=== PATIENT | male | born 1950 | race Caucasian/White ===

== ENCOUNTER → 2016-10-14 | Outpatient (CLI) | payer MEDICARE | LOC: GMAM 18:18 | PROVIDERS: ATTEND Family Medicine | DX: R53.83 Other fatigue (principal); E29.1 Testicular hypofunction; M10.9 Gout, unspecified; Z12.5 Encounter for screening for malignant neoplasm of prostate | CPT/HCPCS: 84403; 84439; 84443; 84550; G0103 ==

== ENCOUNTER → 2017-04-29 | Outpatient (CLI) | payer MEDICARE | END | disposition home or self-care (01) | LOC: GMAM 11:07 | PROVIDERS: ATTEND Family Medicine | DX: E53.8 Deficiency of other specified B group vitamins (principal); E29.1 Testicular hypofunction; M10.9 Gout, unspecified ==

== ENCOUNTER → 2017-12-02 | Outpatient (CLI) | payer MEDICARE | LOC: GMAM 11:47 | PROVIDERS: ATTEND Family Medicine | DX: M10.9 Gout, unspecified (principal); E53.8 Deficiency of other specified B group vitamins; Z12.5 Encounter for screening for malignant neoplasm of prostate | CPT/HCPCS: 82607; 84550; G0103 ==

== ENCOUNTER → 2017-12-15 | Outpatient (CLI) | payer MEDICARE | LOC: GMAM 14:00 | PROVIDERS: ATTEND Family Medicine | DX: E29.1 Testicular hypofunction (principal) ==

== ENCOUNTER → 2018-01-15 | Outpatient (CLI) | payer MEDICARE ==
--- NOTE | 2018-01-16 14:59 | US ---
Exam: Bilateral lower extremity arterial Doppler sonogram CLINICAL HISTORY: Peripheral vascular disease of the lower extremities TECHNIQUE: Doppler sonographic evaluation of the bilateral lower extremities was performed. FINDINGS: Right Submitted sonographic images reveal arteriosclerotic plaque in the right common femoral and superficial femoral arteries. Positive flow in the popliteal artery and vessels below the knee. There is monophasic flow in the posterior tibial and dorsalis pedis arteries consistent with extensive significant arteriosclerotic changes proximally. The following peak systolic flow flow velocity measurements were obtained: Common femoral artery velocity equals 80 centimeters per second , triphasic. Superficial femoral artery velocity equals 63-77 centimeters per second , biphasic. Popliteal artery velocity equals 48 centimeters per second , triphasic. Peroneal artery velocity equals 34.5 centimeters per second , biphasic. Posterior tibial artery velocity equals 42 centimeters per second , monophasic. Dorsalis pedis artery velocity equals 5.3 centimeters per second , monophasic. Left Submitted sonographic images reveal calcified plaque in left common femoral artery and superficial femoral artery. Positive flow in the calcified popliteal artery with no high-grade stenosis visualized. Monophasic flow in the left posterior tibial and dorsalis pedis arteries suggests significant arteriosclerotic changes proximally. The following peak systolic flow flow velocity measurements were obtained: Common femoral artery velocity equals 118 centimeters per second , triphasic. Superficial femoral artery velocity equals 50-79 centimeters per second , biphasic. Popliteal artery velocity equals 47 centimeters per second , triphasic. Peroneal artery velocity equals 45.5 centimeters per second , biphasic. Posterior tibial artery velocity equals 27 centimeters per second , monophasic. Dorsalis pedis artery velocity equals 13 centimeters per second , monophasic. IMPRESSION: Monophasic flow in the posterior tibial and dorsalis pedis arteries bilaterally consistent with significant peripheral arteriosclerotic vascular disease. Electronically signed by: Bala Farrar MD 01/16/2018 2:58 PM CDT
== END ==
LOC: US 09:00
PROVIDERS: ATTEND Family Medicine
DX: I73.9 Peripheral vascular disease, unspecified (principal)

== ENCOUNTER → 2018-03-05 | Outpatient (CLI) | payer MEDICARE ==
--- NOTE | 2018-03-05 17:45 | CT ---
EXAM DESCRIPTION: CTA Runoff CLINICAL HISTORY: 67 years, Male, I35.0,I49.9, I70.0,I73.9 COMPARISON: None TECHNIQUE: Rapid bolus administration of 150 mL of Optiray 320 IV contrast was performed with thin-section axial scanning of the abdomen, pelvis and lower extremities performed in a dynamic fashion for CT angiography. Reconstructed multiplanar and three dimensional MIP images created on a separate dedicated workstation are reviewed along with the source axial images and stored in the patient's medical record. FINDINGS: CT angiography abdomen Normal enhancement of the aorta is seen with calcification at the origins of celiac and superior mesenteric arteries. Axial images would suggest 50% stenoses of both of these vessels. Dense calcification of the renal artery origins is present with mild narrowing on the left and 50-70% narrowing of the right renal artery origin. No aortic aneurysm. Calcified common iliac arteries are noted without aneurysm. Positive enhancement of the inferior mesenteric artery as well as the peripheral branches of the superior mesenteric artery. There is positive enhancement of hepatic and splenic arteries. Nonangiographic findings include small lesions in the liver probably cysts. Normal size of the spleen. Normal renal cortical enhancement bilaterally with no delay in the nephrogram. CT angiography pelvis No significant stenosis of the common iliac arteries. Right common femoral artery is widely patent with normally enhanced bifurcation. The left common femoral artery is irregularly narrowed approximately 40% by calcified plaque. Positive enhancement of the left femoral bifurcation. Nonangiographic findings in the pelvis include diverticulosis of the sigmoid colon. Appendix appears normal. No pelvic mass. Prostate is mildly prominent with normal appearance the bladder. CT angiography lower extremities Right Mild atherosclerotic plaque at the right femoral bifurcation without significant stenosis of the common femoral or superficial femoral or profunda femoral arteries. Superficial femoral artery is involved with atherosclerotic plaque and multilevel foci of 20-40% luminal diameter narrowing. No high-grade stenosis is evident. There is positive enhancement of the popliteal artery with 40% luminal diameter narrowing distally. Calcified origin of the anterior tibial artery is noted with high-grade 70-80% stenosis proximally. Calcification of the tibioperoneal trunk, posterior tibial and peroneal arteries is seen with high-grade narrowing. Three-vessel flow is seen to the ankle. Positive flow is seen in the posterior plantar arch and dorsalis pedis arteries. Left Calcified plaque causes 40% stenosis of the left common femoral artery just above the bifurcation. Calcified plaque causes 30% origin narrowing of the left superficial femoral artery with no significant narrowing of the profunda femoral artery. Evaluating the superficial femoral artery, calcified plaque is relatively mild throughout its length without high-grade stenosis. Positive enhancement of the left popliteal artery without proximal stenosis. Just above the bifurcation, there is 60% stenosis of the distal popliteal artery. High-grade stenosis of the proximal anterior tibial artery is seen with densely calcified tibioperoneal trunk, posterior tibial and peroneal arteries. No contrast is seen in the lumen of the anterior tibial artery beyond the first few centimeters. There is positive contrast opacification of the small lumen of calcified peritoneal and posterior tibial arteries with two-vessel runoff to the ankle. Collateral vessels reconstitute the dorsalis pedis which is small in size. Collateral vessels reconstitute the posterior plantar arch with minimal positive contrast enhanced vessels in this area. Findings suggest single vessel runoff to the left foot. Three-D shaded surface display images show normal anatomy of the aorta with no aneurysm. Calcified plaque is prominent at the distal external iliac and common femoral arteries. Coronal and sagittal reformatted images show calcified plaque causing 40% narrowing of the left common femoral artery and lesser narrowing on the right. Extensive calcified plaque is seen throughout the vessels. Shaded surface display images are helpful. IMPRESSION: Arteriosclerotic plaque narrows the left common femoral artery approximately 40%. Relatively mild arteriosclerotic disease in the superficial femoral arteries bilaterally. Severe arteriosclerotic narrowing of the vessels below the knees bilaterally with three-vessel runoff to the right ankle and two-vessel runoff to the right foot. Two-vessel runoff to the left ankle with single vessel runoff to the left foot. This exam was performed according to our departmental dose-optimization program, which includes automated exposure control, adjustment of the mA and/or kV according to patient size and/or use of iterative reconstruction technique. Total DLP: 1759.77 mGycm. Electronically signed by: Bala Farrar MD 03/05/2018 5:44 PM CDT
== END ==
LOC: CT 09:00
PROVIDERS: ATTEND Family Medicine
DX: I35.0 Nonrheumatic aortic (valve) stenosis (principal); I49.9 Cardiac arrhythmia, unspecified; I70.0 Atherosclerosis of aorta; I73.9 Peripheral vascular disease, unspecified

== ENCOUNTER → 2018-07-07 | Outpatient (CLI) | payer MEDICARE | LOC: GMAM 11:50 | PROVIDERS: ATTEND Family Medicine | DX: E53.8 Deficiency of other specified B group vitamins (principal); M10.9 Gout, unspecified ==

== ENCOUNTER → 2018-10-02 | Outpatient (CLI) | payer MEDICARE | LOC: GMAM 10:38 | PROVIDERS: ATTEND Family Medicine | DX: M10.9 Gout, unspecified (principal) ==

== ENCOUNTER → 2019-01-07 | Outpatient (CLI) | payer MEDICARE ==
--- NOTE | 2019-01-08 07:02 | RAD ---
EXAM DESCRIPTION: Shoulder,Left 2 or More Views CLINICAL HISTORY: 68 years Male, M25.511, M25.512 COMPARISON: None. FINDINGS: Four views of the left shoulder show no acute fracture or malalignment. Mild degenerative changes in the left AC joint without undersurface spurring. No apparent lesser fracture or soft tissue abnormality. IMPRESSION: Mild degenerative changes in the left AC joint, otherwise unremarkable exam. Electronically signed by: Nathan Skinner MD 01/08/2019 6:59 AM CDT
--- NOTE | 2019-01-08 07:03 | RAD ---
EXAM DESCRIPTION: Shoulder,Right 2 or More Views CLINICAL HISTORY: 68 years Male, M25.511, M25.512 COMPARISON: None. FINDINGS: Four views of the right shoulder show no acute fracture or malalignment. There are degenerative changes in the right AC joint including mild undersurface spurring. The soft tissues are unremarkable. No right-sided rib fracture. IMPRESSION: Mild degenerative changes in the right AC joint including undersurface spurring, otherwise unremarkable exam. Electronically signed by: Nathan Skinner MD 01/08/2019 7:00 AM CDT
== END ==
LOC: RAD 07:48
PROVIDERS: ATTEND Orthopaedic Surgery
DX: M19.011 Primary osteoarthritis, right shoulder (principal); M19.012 Primary osteoarthritis, left shoulder

== ENCOUNTER → 2019-10-20 | Outpatient (CLI) | payer MEDICARE | LOC: GMAM 12:04 | PROVIDERS: ATTEND Family Medicine | DX: E53.8 Deficiency of other specified B group vitamins (principal); E29.1 Testicular hypofunction; M10.9 Gout, unspecified; I10 Essential (primary) hypertension ==

== ENCOUNTER 2020-08-27 11:39 | Emergency (ER) | payer MEDICARE ==
--- NOTE | 2020-08-27 12:00 | ED.PDOC ---
History of Present Illness - General Chief Complaint: Lower Extremity Injury Time Seen by Provider: 08/27/20 11:41 Source: patient, RN notes reviewed, Vital Signs reviewed, old records Exam Limitations: no limitations - History of Present Illness Initial Comments: 70 yo male was stepping onto [email or web address] yesterday when he grabbed the door handle and slipped off landing on his right foot but ended up twisting his left ankle. This occurred one day ago. Has pain and swelling so came in for evaluation. denies any other injuries, did not hit head. patient taking alleve and took SO tramadol for pain. tramadol did seem to help. Allergies/Adverse Reactions: Allergies NO KNOWN ALLERGY Allergy (Verified 08/27/20 12:30) Home Medications: Ambulatory Orders Allopurinol [Zyloprim] 600 mg PO DAILY 12/06/15 Aspirin [Caitie Low Dose] 81 mg PO BEDTIME 12/06/15 Lisinopril 10 mg PO DAILY 12/06/15 Meloxicam [Mobic] 15 mg PO DAILY 12/06/15 amLODIPine BESYLATE [Norvasc] 10 mg PO BEDTIME 12/06/15 Testosterone Cypionate [Depo-Testosterone] 200 mg IM . EVERY OTHER WEEK 04/29/16 Review of Systems - Review of Systems Constitutional: Denies: chills, fever EENTM: Denies: blurred vision Respiratory: Denies: cough, short of breath Cardiology: Denies: chest pain Gastrointestinal/Abdominal: Denies: abdominal pain Genitourinary: Denies: dysuria, hematuria Musculoskeletal: States: joint pain, joint swelling, muscle pain. Denies: back pain Skin: States: see HPI. Denies: rash Neurological: Denies: headache, numbness, paresthesia Endocrine: Denies: unexplained weight loss Hematologic/Lymphatic: Denies: easy bleeding, easy bruising Past Medical History (General) - Patient Medical History Hx Stroke: No Hx Dementia: No Hx Asthma: No Hx Cardiac Disorders: No Hx Congestive Heart Failure: No Hx Pacemaker: No Hx Hypertension: Yes Hx Diabetes: No Hx MRSA: No - Vaccination History Hx Tetanus, Diphtheria Vaccination: No Hx Influenza Vaccination: No Hx Pneumococcal Vaccination: No - Social History Hx Tobacco Use: No Family Medical History - Family History Mother Family History: Unknown Physical Exam - Physical Exam General Appearance: Alert, Comfortable, No apparent distress, Well Developed, Well Groomed, Well Hydrated, Well Nourished Eyes, Ears, Nose, Throat: normal ENT inspection Neck: non-tender, supple, normal inspection Cardiovascular/Respiratory: regular rate, rhythm, normal peripheral pulses, no respiratory distress Gastrointestinal/Abdominal: non-tender Back: normal inspection, no vertebral tenderness Thigh/Hip: normal inspection, non-tender, no evidence of injury, normal ROM Leg: normal inspection, non-tender, no evidence of injury, normal ROM Knee: normal inspection, non-tender, no evidence of injury, normal ROM Ankle: soft tissue tenderness, swelling - left ankle swelling, mild eccymosis , other - no evidence of joint instability Foot: normal inspection, non-tender, no evidence of injury, normal ROM DTR - Lower Extremities: 2+: Patellar, left, Patellar, right Neuro/Tendon: normal sensation, normal motor functions, normal tendon functions, responds to pain, no evidence tendon injury Mental Status: alert, oriented x 3 Skin: normal color, warm/dry Progress - Progress Progress: 08/27/20 12:36 The data reviewed when caring for this patient included: nurse notes, prior records, etc. The history and assessments from nurses notes were reviewed and considered, and the patient's home medication list was also reviewed and considered. My assessment and the results of testing completed here in the ED were discussed with the patient/family. All questions were answered, and they express understanding of my assessment and the plan. They have been instructed to return if their symptoms worsen, and have been asked to follow up with their primary care physician to recheck today's presenting complaint. Strict return precautions given. I have reviewed medication, benefits, alternatives and side effects. Patient decided to proceed with medication. Idalia Franks DO #[id number] - EKG/XRAY/CT XRAY: ankle - arthritis, no acute fracture noted. Departure - Departure Clinical Impression: Ankle sprain Qualifiers: Encounter type: initial encounter Involved ligament of ankle: unspecified ligament Laterality: left Qualified Code(s): S93.402A - Sprain of unspecified ligament of left ankle, initial encounter Time of Disposition: 12:26 Disposition: Discharge to Home or Self Care Departure Forms: ED Discharge - Pt. Copy, Patient Portal Self Enrollment Instructions: DI for Leg Pain, Ankle Sprain (DC) Referrals: Drew Velazquez MD [Primary Care Provider] - 1 Week Home Medications: Ambulatory Orders Allopurinol [Zyloprim] 600 mg PO DAILY 12/06/15 Aspirin [Caitie Low Dose] 81 mg PO BEDTIME 12/06/15 Lisinopril 10 mg PO DAILY 12/06/15 Meloxicam [Mobic] 15 mg PO DAILY 12/06/15 amLODIPine BESYLATE [Norvasc] 10 mg PO BEDTIME 12/06/15 Testosterone Cypionate [Depo-Testosterone] 200 mg IM . EVERY OTHER WEEK 04/29/16 Additional Instructions: Alleve with food or milk for pain. Tylenol for pain.
--- NOTE | 2020-08-27 12:22 | RAD ---
EXAM: Ankle,Left 3 Views CLINICAL INDICATION: Left ankle pain COMPARISON: There is no previous study for comparison. FINDINGS: Three views of the left ankle reveal no fracture. The ankle mortise and talar dome are intact. There are mild degenerative changes of the ankle joint. There is a well-corticated ossicle distal to the tip of the fibula consistent with sequela of old trauma. The osseous structures are otherwise intact and unremarkable. IMPRESSION: No acute fracture or dislocation. Mild degenerative changes of the ankle joint. Electronically signed by: Bandar Franklin MD 08/27/2020 12:21 PM [facility]
[2020-08-27 12:50] VITALS: BP 138/78; TEMP 97.9; O2SAT 94
== END 2020-08-27 12:46 | disposition home or self-care (01) ==
LOC: ER 11:39
DX: S93.402A Sprain of unspecified ligament of left ankle, initial encounter (principal); I10 Essential (primary) hypertension; V48.4XXA Person boarding or alighting a car injured in noncollision transport accident, initial encounter; Y92.9 Unspecified place or not applicable; Z79.82 Long term (current) use of aspirin; Z79.899 Other long term (current) drug therapy

== ENCOUNTER → 2020-10-27 | Outpatient (CLI) | payer MEDICARE | LOC: GMAM 11:41 | PROVIDERS: ATTEND Family Medicine | DX: E53.8 Deficiency of other specified B group vitamins (principal); Z12.5 Encounter for screening for malignant neoplasm of prostate; I10 Essential (primary) hypertension; E78.2 Mixed hyperlipidemia; M10.9 Gout, unspecified | CPT/HCPCS: 82607; 84550; G0103 ==